=== PATIENT | male | born 1995 | race Caucasian/White ===

== ENCOUNTER 2018-11-05 10:34 | Emergency (ER) | payer BC ==
[2018-11-05] MEDS ORDERED: Sodium Chloride 0.9% 1,000 ML IV SCH (11:00)
--- NOTE | 2018-11-05 11:00 | EDM.PDOC ---
ED HPI GENERAL MEDICAL PROBLEM - General Chief Complaint: Trauma Stated Complaint: [facility] Time Seen by Provider: 11/05/18 10:51 Source of Information: Reports: Patient, EMS, Family (mother) History Limitations: Reports: No Limitations - History of Present Illness INITIAL COMMENTS - FREE TEXT/NARRATIVE: 23-year-old male presents the ED per [facility] after suffering a fall while running downhill after his dog this morning. His dog was chasing a rabbit and he decided to cody the dog. He got tripped up and fell forwards landing hard on his left chest wall and face. Apparently there was no loss of consciousness. The wind was knocked from him. The dog came back after recognizing that his master had fallen. Adin suffers from autism and is very sensitive to touch. He came into the house and sat on the bed. Of note his nose was contused and abraded and laceration to his chin was present when he entered the house. He was telling his mother wanted happened when he suddenly passed out a syncopal event falling face first into the hardwood floor. He was only out for about 10 seconds according to mother who is a data integration developer. Suffered injuries to his nose and laceration to his right chin from the primary fall while running down hill and not from the syncopal event. He reports at this time that his left mandible is sore but he feels no malocclusion. His nose was bleeding but has quit in his stools quite sore. Not bite his tongue. The medics were summoned and a c-collar was placed because he was complaining of cervical neck pain. He was having quite severe pain in his left chest wall lower ribs when he was talking to his mom before he passed out. His mother reported that he was quite pallid. No vomiting although he complained of nausea to the paramedics and has received Zofran 4 mg IV. He still having diffuse mid and left upper quadrant abdominal pain. Concern for splenic injury appreciated. He arrives with a c-collar in place. He is alert and oriented and able to provide a full history. Offered analgesia at this time but he declined. Mother believes his tetanus diphtheria and pertussis vaccine is up-to-date at age 20 when he went to college. Onset: Today Onset Date: 11/05/18 Onset Time: 09:30 Duration: Minutes:, Other (Seems to be slowly getting better.) Location: Reports: Face, Neck, Chest, Abdomen Quality: Reports: Ache, Other (Pain sensation is altered due to his autism. He rarely takes more than ibuprofen for pain relief.) Severity: Mild (He reports current pain in his left ribs and nose as 3-4 out of 10) Improves with: Reports: None Worsens with: Reports: Other (Worse with deep breathing and touch of the nose.) Context: Reports: Trauma (Tripped and fell while running down hill after his dog this morning.) Associated Symptoms: Reports: Chest Pain, Nausea/Vomiting (Nausea without vomiting improved after), Other (Diffuse left upper quadrant epigastric abdominal pain.). Denies: Confusion, Cough (Left rib pain although mild compared to what it was initially.), cough w sputum, Diaphoresis, Fever/Chills, Headaches, Loss of Appetite, Malaise, Rash, Seizure ( Zofran IV), Shortness of Breath Treatments FOUNDER AND CHIEF EXECUTIVE OFFICER: Reports: Other (see below) (Zofran administered by paramedics IV 4 mg) Nose Pain Score (Numeric/FACES): 3 - Related Data Allergies Allergy/AdvReac Type Severity Reaction Status Date / Time amoxicillin [From Augmentin] Allergy Rash Verified 11/05/18 10:47 clavulanic acid Allergy Rash Verified 11/05/18 10:47 [From Augmentin] Home Meds: Home Meds Escitalopram [Lexapro] 20 mg PO DAILY 11/05/18 [History] buPROPion [buPROPion XL] 150 mg PO DAILY 11/05/18 [History] Past Medical History - Past Surgical History Head Surgeries/Procedures: Reports: None - History Comment History Comment: Patient has autism. Tends to be overly sensitive to touch. Requires a lot of explanation before doing anything for him. Social & Family History - Living Situation & Occupation Living situation: Reports: with Family (Lives with his mother. He is disabled from his autism.) Occupation: Unemployed Review of Systems - Review of Systems Review Of Systems: See Below Constitutional: Denies: Chills, Diaphoresis, Fever, Weakness, Other Eyes: Reports: No Symptoms. Denies: Decreased Acuity Ears: Reports: No Symptoms Nose: Reports: Other (Nose is very tender since he fell. There was some epistaxis but has now stopped bleeding.) Mouth/Throat: Reports: Other (Does have diffuse pain in his right chin where he is a small laceration 1.5 cm. Diffuse cervical neck pain and pain in his left mandible.) Respiratory: Reports: Shortness of Breath ( Not feel that there is any malocclusion initially was quite short of breath but this is somewhat better now. Still has left sided rib pain but not near as bad as it was.) Cardiovascular: Reports: Chest Pain (From a fall and trauma to the left chest wall) GI/Abdominal: Reports: Abdominal Pain (Diffuse left upper quadrant epigastric and midabdominal discomfort or pain. Associated nausea without vomiting.) Genitourinary: Reports: No Symptoms Musculoskeletal: Reports: Other (Pain in his cervical spine. This occurred more after he had suffered a syncopal episode in the house and struck the wooden floor face first. C-collar remains in place that paramedics placed. Denies any pain in his wrists elbows or shoulders. He has a small laceration to the palmar aspect of his right hand. No apparent injuries to his knees.) Skin: Reports: Other (Laceration undersurface right chin 1.5 cm.) Neurological: Denies: Confusion, Dizziness, Headache, Numbness, Paresthesia, Pre -Existing Deficit, Syncope, Tingling, Tremors, Trouble Speaking Psychiatric: Reports: Other (Autism spectrum disorder with hypersensitivity to touch) ED EXAM, GENERAL - Physical Exam Exam: See Below Exam Limited By: No Limitations General Appearance: Alert, WD/WN, Mild Distress, Other (Blood pressure is 111/ 66 and mom relates he always runs on the low side.) Eye Exam: Bilateral Eye: Normal Inspection Ears: Normal External Exam Throat/Mouth: Other (Nose is contused and abraded on the midline. It is slightly swollen. There is no obvious deviation of the nasal septum there is some dried blood is in the left naris with no active bleeding at present) Head: Atraumatic, Normocephalic, Other (Suffered blunt trauma with abrasions to the nose and a laceration to his right chin. Along his left mandible but no malocclusion) Neck: Other (He arrives with a c-collar in place. He apparently developed cervical neck pain on questioning after he had a syncopal event in the house witnessed by his mother. He struck a hardwood floor with his face first on a loss consciousness. He does not believe that he hurt his neck when he fell running down the hill prior to syncopal event.) Respiratory/Chest: No Respiratory Distress, Lungs Clear, Splinting (Splinting respirations with decreased air entry to the left lung field.), Other (No subcutaneous emphysema and no palpable crepitus on palpation of his left lateral ribs. Mild superficial abrasions over the left lower anterior lateral chest wall) Cardiovascular: Normal Peripheral Pulses, Regular Rate, Rhythm, No Edema, No Gallop, No Murmur, No Rub, Other (Blood pressure is normal) Peripheral Pulses: 3+: Posterior Tibial (L), Posterior Tibial (R), Dorsalis Pedis (L), Dorsalis Pedis (R) GI/Abdominal: No Organomegaly, Tender (Tenderness left upper quadrant epigastrium and mid abdomen on palpation. No true guarding or rigidity or rebound tenderness elicited. She was somewhat difficult as he has hypersensitivity to touch. This is due to his autism spectrum disorder), Abnormal Bowel Sounds (Bowel sounds are very quiet sent but are present.) Back Exam: Normal Inspection. No: CVA Tenderness (L), CVA Tenderness (R) Extremities: Other (He has a small bruise abrasion to the mid palmar aspect of his right hand but full range of motion of his wrists fingers elbows shoulders and knees and ankles.) Neurological: Alert, Oriented, CN II-XII Intact, Normal Cognition Psychiatric: Normal Affect, Other (Mildly anxious.) Skin Exam: Other (Laceration to the undersurface of his right chin 1.5 cm.) Course - Vital Signs Last Recorded V/S: Last Vital Signs Temp 36.5 C 11/05/18 10:51 Pulse 79 11/05/18 10:51 Resp 16 11/05/18 10:51 BP 111/66 11/05/18 10:51 Pulse Ox 98 11/05/18 10:51 - Orders/Labs/Meds Orders: Active Orders 24 hr Category Date Time Status Sodium Chloride 0.9% [Normal Saline] 1,000 ml Med 11/05/18 11:00 Active IV ASDIRECTED Medication Orders Sodium Chloride (Normal Saline) 1,000 mls @ 150 mls/hr IV ASDIRECTED KORTNEY Last Admin: 11/05/18 11:30 Dose: 150 mls/hr Meds: Medications Generic Name Dose Route Start Last Admin Trade Name Freq PRN Reason Stop Dose Admin Sodium Chloride 1,000 mls @ 150 mls/hr 11/05/18 11:00 11/05/18 11:30 Normal Saline IV 150 mls/hr ASDIRECTED KORTNEY Administration Discontinued Medications Generic Name Dose Route Start Last Admin Trade Name Chauncey PRN Reason Stop Dose Admin Iopamidol 100 ml 11/05/18 11:02 11/05/18 11:22 Isovue-370 (76%) IVPUSH 11/05/18 11:03 100 ml ONETIME ONE Administration Sodium Chloride 10 ml 11/05/18 11:02 11/05/18 11:22 Saline Flush FLUSH 11/05/18 11:03 10 ml ONETIME ONE Administration - Radiology Interpretation Free Text/Narrative:: 23-year-old male with autism spectrum disorder presents to the ED after injuries to his left anterior chest and face that occurred while running after his dog down a steep hill behind their house this morning. He tripped and fell and landed primarily on his left chest and had the wind knocked out of him. Once he recovered from this he went into the house and was sitting on the bed to tell his mom what happened when he was quite pale in appearance and then suffered a syncopal episode falling face first onto the wooden floor. Mom reports that he was unresponsive for about 10 seconds. He when he regained consciousness he could speak normally. He suffered injuries to his nose and laceration to his right chin and complains of pain in his left mandible after striking the floor. His injuries to his left chest wall and eased up some since getting in the ambulance and coming to [place]. C-collar was placed on scene because of cervical neck pain. Concern for syncopal event possibly related to splenic injury due to left chest wall injury. Does have diffuse abdominal pain without guarding on examination. Bowel sounds however quite quiescent on exam. Called to assess due to his autism spectrum disorder as he is hypersensitive to touch. By pressure is 111/68. Heart rate is [address] maxillofacial bone CT cervical spine CT chest abdomen pelvis with IV contrast only to rule out splenic or renal injury. Analgesia in the ED but he refuses. Will likely require laceration repair to right chin. Mother believes his tetanus toxoid is up-to-date. - Re-Assessments/Exams Free Text/Narrative Re-Assessment/Exam: 11/05/18 12:00 CT of the cervical spine reveals no fractures. 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 There is a cervical rib at C7 level on both sides placing him at risk of thoracic outlet syndrome. CT of the maxillofacial bones reveals an undisplaced fracture at the bridge of the spinous process. There is slight deformity of the vomer deviated slightly to the left side as well. Injuries will heal without any surgical treatment. CT chest abdomen pelvis reveals no contusion to the lungs. No pneumothorax or rib fractures. CT of the abdomen pelvis reveals no injuries to the liver, spleen or kidneys. Pancreas appears to be normal .Gallbladder is present without any calcified gallstones. No free fluid in the pelvis. Large and small bowel do not show any abnormalities. I had a look at the laceration under his chin and appears that it is fairly superficial and I don't believe would benefit much from sutures. He will therefore be cleansed and topical antibiotic ointment and a Band-Aid until healed. Motrin as needed for nasal pain. Mother present and advised. Follow-up as needed. Departure - Departure Time of Disposition: 12:07 Disposition: Home, Self-Care 01 Condition: Fair Clinical Impression: Syncope and collapse Laceration of chin without complication Qualifiers: Encounter type: initial encounter Qualified Code(s): S01.81XA - Laceration without foreign body of other part of head, initial encounter Nasal bone fracture Qualifiers: Encounter type: initial encounter Fracture type: closed Qualified Code(s): S02.2XXA - Fracture of nasal bones, initial encounter for closed fracture Abrasion of right hand Qualifiers: Encounter type: initial encounter Qualified Code(s): S60.511A - Abrasion of right hand, initial encounter Contusion of left chest wall Qualifiers: Encounter type: initial encounter Qualified Code(s): S20.212A - Contusion of left front wall of thorax, initial encounter Abdominal pain Qualifiers: Abdominal location: epigastric Qualified Code(s): R10.13 - Epigastric pain - Discharge Information *PRESCRIPTION DRUG MONITORING PROGRAM REVIEWED*: Not Applicable *COPY OF PRESCRIPTION DRUG MONITORING REPORT IN PATIENT [facility]: Not Applicable Instructions: Nasal Fracture, [id number], Abrasion, [id number] Referrals: Margaret Luna PA [Primary Care Provider] - Forms: ED Department Discharge Additional Instructions: Evaluation in the emergency room today after injuries occurred from a fall while running after your dog downhill this morning. History suggests she fell forwards landing hard on her left chest wall knocking the wind out of view and suffered laceration to your chin and contusion to your nose. After he got back in the house and were talking with your mom it appears that you suffered a syncopal event likely vasovagal in origin which means pain response caused you to have a lower blood pressure than normal and low heart rate is then caused you to faint and loose consciousness transiently. Concern arose due to the nature of the injury whether or not she could've suffered a injury to your spleen or kidney and/or ribs from the fall while running down hill. Also you experience some mandibular pain on the left side and obvious injuries to your nose. CT of the nasal bones shows an undisplaced fracture of the nasal septum. He knows will be very tender to touch for the next 10-14 days but will heal nicely on its own over the next 6 weeks without need for surgery. There was no evidence of any facial bone fractures to the mandible or maxilla. Laceration to the undersurface of the right chin is approximately 1.2 cm in length. It was felt that it was in good enough position that sutures would not improve scar formation. Treatment is to daily cleanse this area with soap and water. Showering is okay. Then apply topical antibiotic such as bacitracin or Polysporin to the area once daily until healed. You don't have to put a Band- Aid on it if you don't want to. CT scan of the chest abdomen pelvis did not reveal any fractured ribs or contusion to the long. It also did not reveal any injuries to the internal organs such as the liver spleen or kidneys or pancreas. Gallbladder is normal without stones. Expect to be more stiff and sore tomorrow particular in your neck and chest wall. ET of your cervicals spine did not reveal any fractures. May use ibuprofen 600 mg every 6 hours if needed for pain relief. Follow-up with personal care physician if any further problems occur. - My Orders Last 24 Hours: My Active Orders 11/05/18 11:00 Sodium Chloride 0.9% [Normal Saline] 1,000 ml IV ASDIRECTED - Assessment/Plan Last 24 Hours: My Active Orders 11/05/18 11:00 Sodium Chloride 0.9% [Normal Saline] 1,000 ml IV ASDIRECTED
[2018-11-05] MEDS ORDERED: Iopamidol 755 Mg/ML 100 ML Bottle IVPUSH ONE (11:02)
[2018-11-05] MEDS ORDERED: Sodium Chloride 0.9% 10 ML Syringe FLUSH ONE (11:02)
--- NOTE | 2018-11-05 11:53 | CT ---
Chest CT Technique: Multiple axial sections were obtained from above the lung apices inferiorly through the lung bases. Intravenous contrast was utilized. Comparison: No prior chest imaging. Findings: Mediastinum and hilar regions appear within normal limits. Slight increased density is noted within the superior mediastinum which is believed to represent normal residual thymic tissue. No pericardial fluid is seen. Lungs are clear with no acute parenchymal change. No pleural effusions or pneumothorax is seen. Vertebral body heights are maintained. Reconstructed sagittal images show no sternal fracture. No discrete rib fracture is seen. Impression: 1. No abnormality is identified on CT study of the chest. Diagnostic code #1 CT abdomen and pelvis Technique: Multiple axial sections were obtained from above the dome of the diaphragm inferiorly through the pubic symphysis. Intravenous contrast was utilized. No oral contrast has been given. Delayed images were obtained through the bladder. Minimal fatty infiltration is believed to be present within the liver. Liver shows no focal abnormality. Spleen appears within normal limits. Adrenal glands show no nodule. Pancreas is normal. Gallbladder contains no calcified gallstones. Kidneys show symmetric contrast enhancement without abnormality. Pancreas is within normal limits. Aorta shows no aneurysm. No retroperitoneal adenopathy or mesenteric abnormalities are seen. No pelvic mass or adenopathy is seen. No free fluid or inflammatory change is seen. Bone window settings were reviewed which shows no discrete fracture within the lumbar spine or within the pelvis or hips. Impression: 1. Fatty infiltration within the liver. 2. Nothing acute is appreciated on CT study of the abdomen and pelvis. Diagnostic code #2
--- NOTE | 2018-11-05 11:53 | CT ---
CT cervical spine Technique: Multiple axial sections were obtained from above C1 inferiorly to the top of T2. Reconstructed sagittal and coronal images were reviewed. Comparison: No prior cervical spine imaging. Findings: Vertebral body heights and disc spaces are maintained. Mastoid sinuses that are seen appear clear. Vertebral bodies and posterior arches are intact. No fracture is seen. No bony central or bony neural foraminal stenosis is seen. No abnormal subluxation is seen on the reconstructed sagittal images. Impression: 1. Nothing acute is appreciated on CT study of the cervical spine. Diagnostic code #1
--- NOTE | 2018-11-05 11:53 | CT ---
CT facial bones Technique: Multiple axial sections through the facial bones were obtained. Reconstructed coronal and sagittal images were reviewed. Comparison: No prior facial bone imaging. Findings: Minimal mucosal thickening is seen within the anterior ethmoid sinuses. Minimal mucosal thickening is seen within the sphenoid sinus. No air-fluid levels are seen within the paranasal sinuses. Mastoid sinuses are clear. Right and left globes are symmetric. No facial bone fracture is identified. Impression: 1. Minimal sinus findings which are most likely incidental. 2. No acute facial bone abnormality is appreciated. Diagnostic code #2
== END 2018-11-05 12:23 | disposition home or self-care (01) ==
LOC: JD.ED 10:34
DX: S02.2XXA Fracture of nasal bones, initial encounter for closed fracture (principal); S01.81XA Laceration without foreign body of other part of head, initial encounter; S20.212A Contusion of left front wall of thorax, initial encounter; S60.511A Abrasion of right hand, initial encounter; R55 Syncope and collapse; R10.13 Epigastric pain; Z88.1 Allergy status to other antibiotic agents; Z88.8 Allergy status to other drugs, medicaments and biological substances; Z79.899 Other long term (current) drug therapy; Y93.02 Activity, running; W17.89XA Other fall from one level to another, initial encounter
CPT/HCPCS: 70486; 71260; 72125; 74177; 99283; J7040; Q9967; 99284